=== PATIENT | male | born 1965 | race Caucasian/White ===

== ENCOUNTER → 2020-05-26 | Outpatient (CLI) | payer OTHER ==
[~2020-05-26] MED LIST: CELEBREX 1100 MG/CAP; NORCO 325 MG-7.1 TAB PO; PRILOSEC 20MG20 MG PO; PRINIVIL10 MG PO
== END ==
LOC: COL.RAD 07:24
DX: M47.816 Spondylosis without myelopathy or radiculopathy, lumbar region (principal); M51.36 Other intervertebral disc degeneration, lumbar region; M48.061 Spinal stenosis, lumbar region without neurogenic claudication

== ENCOUNTER 2023-04-01 07:03 | Emergency (ER) | payer OTHER ==
[~2023-04-01] VITALS: Ht 180.3 cm; Wt 113.6 kg
[2023-04-01 07:06] VITALS: TEMP 98.8
[2023-04-01 07:53] LABS: BASO % 0.7 % (0.0-2.0); EOS % 0.2 % (0.0-4.0); GRAN % 74.2 % (42.2-75.2); HEMATOCRIT 48.3 % (42.0-52.0); HEMOGLOBIN 15.3 g/dl (13.5-18.0); LYMPH # 0.5 K/mm3 (1.2-3.4); LYMPH % 8.3 % (20.0-51.0); MEAN CELL VOLUME 91 fl (80.0-100.0); MEAN CORPUSCULAR HEMOGLOBIN 29 pg (27-31); MEAN CORPUSCULAR HGB CONC 32 g/dl (33.0-37.0); MEAN PLATELET VOLUME 10.4 fl (7.4-10.4); MONO # 0.9 K/mm3 (0.1-0.6); MONO % 16.2 % (1.7-9.3); PLATELET COUNT 173 K/mm3 (130-400); RED BLOOD COUNT 5.33 M/mm3 (4.20-5.60); REDCELL DISTRIBUTION WIDTH-CV 12.5 % (11.5-14.5)
[2023-04-01 08:17] LABS: ALANINE AMINOTRANSFERASE 57 U/L (0-55); ALBUMIN 4.2 gm/dL (3.5-5.0); ALKALINE PHOSPHATASE 102 U/L (40-150); ANION GAP 11 mmol/L (7-16); AST,SGOT 29 U/L (5-34); BILIRUBIN,TOTAL 0.7 mg/dL (0.2-1.2); BLOOD UREA NITROGEN 16 mg/dL (8-26); CALCIUM 9.2 mg/dL (8.4-10.2); CARBON DIOXIDE 21 mmol/L (22-29); CHLORIDE 103 mmol/L (98-107); CREATININE, serum 0.87 mg/dL (0.72-1.25); GLUCOSE 101 mg/dL (70-99); POTASSIUM 4.3 mmol/L (3.5-4.5); SODIUM 135 mmol/L (136-145); TOTAL PROTEIN 7.4 gm/dL (6.2-8.1)
[2023-04-01 08:23] LABS: TROPONIN-I < 0.010 ng/mL (0.00-0.033)
[2023-04-01] MEDS ORDERED: TESSALON P100 MG/CAP PO (08:51)
[2023-04-01] MEDS ORDERED: PREDNISONE20 MG PO (08:51)
[2023-04-01] MEDS ORDERED: PHENERGAN W/CO120 M1 PO ×3 (09:32→10:27)
[2023-04-01 09:48] VITALS: BP 138/87; PULSE 96
[2023-04-01] MEDS ORDERED: GUAIFENESIN DA473 ML (10:54)
[2023-04-01] MEDS ORDERED: CHERATUSSIN AC120 ML PO (11:01)
== END 2023-04-01 09:48 | disposition home or self-care (01) ==
LOC: COL.ER 07:03
PROVIDERS: Emergency Medicine
DX: R05.9 Cough, unspecified (principal); R00.0 Tachycardia, unspecified
CPT/HCPCS: J7120